=== PATIENT | female | born 1950 | race Asian ===

== ENCOUNTER 2017-12-08 17:30 | Emergency (ER) | payer MEDICARE ==
[2017-12-08] MEDS ORDERED: methylPREDNISolone Sod Succ/PF 125 MG/2 ML VIAL ONE (18:04)
== END 2017-12-08 18:27 | disposition home or self-care (01) ==
LOC: NAV ERS 17:30
DX: T78.1XXA Other adverse food reactions, not elsewhere classified, initial encounter (principal); Z79.899 Other long term (current) drug therapy
CPT/HCPCS: 96372; J2930

== ENCOUNTER 2021-09-04 14:55 | Emergency (ER) | payer MEDICARE | END 2021-09-04 15:18 | disposition home or self-care (01) | LOC: NAV ERS 14:55 | DX: R05.9 Cough, unspecified (principal); R09.89 Other specified symptoms and signs involving the circulatory and respiratory systems | CPT/HCPCS: 99283 ==